=== PATIENT | male | born 1955 | race Caucasian/White ===

== ENCOUNTER 2022-10-17 10:55 | Emergency (ER) | payer OTHER, MEDICAID ==
[~2022-10-17] VITALS: Ht 177.8 cm; Wt 68.2 kg
[2022-10-17 10:55] VITALS: BP 138/75; PULSE 94; RESP 18; TEMP 98.6; O2SAT 95
[2022-10-17] MEDS ORDERED: LEVO500T91 PO (12:57)
== END 2022-10-17 12:54 | disposition home or self-care (01) ==
LOC: ER 10:55
DX: S91.001D Unspecified open wound, right ankle, subsequent encounter (principal); Z48.00 Encounter for change or removal of nonsurgical wound dressing; Z79.899 Other long term (current) drug therapy; X58.XXXD Exposure to other specified factors, subsequent encounter

== ENCOUNTER 2024-12-08 22:38 | Inpatient (IN) | payer OTHER, MEDICAID ==
[~2024-12-08] VITALS: Ht 165.1 cm; Wt 61.3 kg
[~2024-12-08 22:38] MED LIST: LEVO500T91 PO
[2024-12-09] VITALS (8 sets, daily range): BP systolic 104–134; BP diastolic 64–90; PULSE 110–116; RESP 16–25; TEMP 98.6; O2SAT 98–100
--- NOTE | 2024-12-09 17:39 | DVHHP2 ---
History of Present Illness Reason for Visit: Septic with acute hypoxic respiratory failure History of Present Illness Gomez Feliciano is a 69-year-old male with past medical history of COPD, chronic bed-bound, and CHF who is a transfer from [facility] in [place] arrived to the ED and was intubated in the ED for acute respiratory distress versus acute hypoxic respiratory failure 1 week ago. Per report from provider patient initially refused to go to the hospital however an APS report was filed for self neglect and eventually ended up in the ED and [facility]. Per report from provider patient had MRSA in the sputum is currently on vancomycin plus cefepime. Per reports patient was reintubated for acute respiratory distress. Still pending transfer from [facility]. Cardiovascular: CHF Pulmonary: COPD Past Medical History Chronic bed-bound Assessment/Plan Assessment/Plan Assessment Sepsis Acute hypoxic respiratory failure Acute respiratory distress Acute on chronic CHF versus COPD exacerbation Chronic bed-bound Plan Admit to ICU IV antibiotics-vancomycin + cefepime ABG Intubated on vent Antiemetics Pain management CBC BNP Chest x-ray NPO RN to recon Home medications DVT prophylaxis-SCDs PUD prophylaxis-PPIs Discussed plan of care with team Pulmonary consult Per reports patient is a DNR Plan discussed with: Other Date of Service: Dec 09, 2024 Billing Provider: ESTEFANY MARINO Common Visit Codes: [id number] INP/OBS CARE (HIGH) ESTEFANY MARINO Dec 09, 2024 17:39
[2024-12-09] MEDS ORDERED: ONDANSETRON HCL 4 MG/2 ML VIAL IV PRN (17:45)
[2024-12-09] MEDS ORDERED: NITROGLYCERIN 0.4 MG SL TAB SL PRN (17:45)
[2024-12-09] MEDS ORDERED: VANCOMYCIN PER PHARMACY 0 MG IV SCH (17:45)
[2024-12-09] MEDS ORDERED: ACETAMINOPHEN 325 MG TAB PO PRN (17:45)
[2024-12-09 23:06] LABS: Hematocrit 35.5 % (41.0-53.0); Hemoglobin 11.4 g/dL (13.5-17.5); Mean Corpuscular Hemoglobin 27.7 pg (28.0-32.0); Mean Corpuscular Volume 86.2 fL (80.0-100.0); Nucleated Red Blood Cells % 0.1 %
[2024-12-09 23:17] LABS: Potassium 3.9 mmol/L (3.5-5.1); Sodium 142 mmol/L (136-145)
[2024-12-09 23:19] LABS: Anion Gap 7 (5-15); Carbon Dioxide 28 mmol/L (20-31)
[2024-12-09 23:23] LABS: Calcium 8.0 mg/dL (8.7-10.4); Chloride 107 mmol/L (98-107)
[2024-12-09 23:24] LABS: BUN/Creatinine Ratio 45.3 (10.0-20.0)
[2024-12-09 23:25] LABS: Blood Urea Nitrogen 29 mg/dL (9-23); Glucose 145 mg/dL (74-106)
[2024-12-09 23:40] LABS: Base Excess 2.8 mmol/L (-2.0-3.0)
[2024-12-10] VITALS (113 sets, daily range): BP systolic 62–138; BP diastolic 39–90; PULSE 69–125; RESP 9–21; TEMP 97.6–98.7; O2SAT 89–100
[2024-12-10] MEDS: PROPOFOL 100 ML IV SCH (00:30)
[2024-12-10] MEDS: CEFEPIME 1GM/50ML 50 ML IV SCH (00:30)
[2024-12-10] MEDS: fentaNYL Drip 2500mCg/250mlNS 250 ML IV SCH (00:30)
[2024-12-10 04:00] LABS: Hematocrit 32.3 % (41.0-53.0); Hemoglobin 10.5 g/dL (13.5-17.5); Mean Corpuscular Hemoglobin 27.6 pg (28.0-32.0); Mean Corpuscular Volume 85.3 fL (80.0-100.0); Nucleated Red Blood Cells % 0.0 %
[2024-12-10 04:19] LABS: Alanine Aminotransferase 35 U/L (7-40); Alkaline Phosphatase 88 U/L (46-116); Anion Gap 8 (5-15); BUN/Creatinine Ratio 60.3 (10.0-20.0); Carbon Dioxide 30 mmol/L (20-31); Chloride 107 mmol/L (98-107); Sodium 145 mmol/L (136-145)
[2024-12-10 04:20] LABS: Bilirubin, Total 0.3 mg/dL (0.2-1.0)
[2024-12-10 04:31] LABS: Albumin 2.5 g/dL (3.2-4.8); Blood Urea Nitrogen 35 mg/dL (9-23); Calcium 7.8 mg/dL (8.7-10.4); Glucose 110 mg/dL (74-106); Potassium 3.5 mmol/L (3.5-5.1); Total Protein 4.4 g/dL (5.7-8.2)
--- NOTE | 2024-12-10 06:41 | DVH ---
CHEST RADIOGRAPH Indication: int on vent Technique: Single frontal view of the chest was obtained COMPARISON: None FINDINGS: Lines and Tubes: Endotracheal tube, enteric catheter and right central venous catheter in satisfactor y position Lungs: Congestion Pleura: Small right pleural effusion Cardiomediastinal contours: Cardiomegaly Bones: Unremarkable IMPRESSION: Lines and tubes in satisfactory position. Congestion.
[2024-12-10 09:02] LABS: Base Excess 2.6 mmol/L (-2.0-3.0)
[2024-12-10] MEDS ORDERED: NOREPINEPHRINE 8 MG/250ML KIT 250 ML IV SCH (10:15)
[2024-12-10] MEDS: NOREPINEPHRINE 8 MG/250ML KIT 250 ML IV SCH (13:30)
--- NOTE | 2024-12-10 16:04 | DVHPN2 ---
Subjective Intubated and sedated FiO2 30% 69-year-old male with a history of heart failure, COPD was transferred from [facility] after he was admitted there for acute respiratory failure and was found to have MRSA pneumonia with septic shock, he was intubated there and then extubated however he had to be reintubated emergently. He has been treated with IV antibiotics and vasopressors, at the time of transfer here he was off the vasopressors Today is blood pressure is borderline and he needed to be on Levophed again The plan of care is for him to be DNR, the wants other treatments to be provided however including antibiotics and vasopressors There is an APS case since the was not able to provide care for him Changes from previous H/P or p: Changes Objective Vitals Vital Signs Date Time Temp Pulse Resp B/P (MAP) Pulse Ox O2 Delivery O2 Flow Rate FiO2 12/10/24 15:00 111/73 12/10/24 13:23 85 12 100 30 12/10/24 06:00 Mechanical Ventilator+ 12/10/24 04:00 98.7 98.7 Intake/Output Intake and Output 12/10/24 07:00 Intake Total 205.22 ml Output Total 400 ml Balance -194.78 ml Intake IV Total 205.22 ml Output Urine Total 400 ml # Bowel Movements 1 General Appearance: Alert Cardiovascular: Regular rate, Normal S1 Abdomen: Normal bowel sounds, Soft, No tenderness Extremities: No edema Medications Current Medications Medications Dose Ordered Sig/Cordelia Route Start Time Stop Time Status Last Admin Dose Admin Ondansetron HCl 4 mg Q4HP PRN IV 12/09/24 17:45 Acetaminophen 650 mg Q6HP PRN PO 12/09/24 17:45 Nitroglycerin 0.4 mg Q5MINP PRN SL 12/09/24 17:45 Morphine Sulfate 2 mg Q30M PRN IV 12/09/24 17:45 Vancomycin HCl 0 ml @ 0 mls/hr UD IV 12/09/24 17:45 Cefepime HCl 50 ml @ 12.5 mls/hr Q8H IV 12/09/24 00:30 12/10/24 09:06 12.5 MLS/HR Propofol 100 ml @ 1.86 mls/hr Q24H IV 12/10/24 00:30 12/10/24 12:48 5.58 MLS/HR Fentanyl Citrate 250 ml @ 2.5 mls/hr Q24H IV 12/10/24 00:30 Norepinephrine Bitartrate 250 ml @ 3.75 mls/hr Q24H IV 12/10/24 13:30 Vancomycin HCl 100 ml @ 100 mls/hr Q12H IV 12/11/24 06:00 Laboratory Results Laboratory Tests 12/10/24 03:20 Chemistry Test 12/09/24 22:50 12/10/24 03:20 Calcium Level 8.0 mg/dL (8.7-10.4) L 7.8 mg/dL (8.7-10.4) L Albumin 2.5 g/dL (3.2-4.8) L Total Protein 4.4 g/dL (5.7-8.2) L LFT Test 12/10/24 03:20 Alanine Aminotransferase (ALT) 35 U/L (7-40) Alkaline Phosphatase 88 U/L (46-116) Aspartate Amino Transferase (AST) 39 U/L (13-40) Total Bilirubin 0.3 mg/dL (0.2-1.0) Blood Gas Results Test 12/09/24 23:33 12/10/24 06:25 Arterial Blood pH 7.422 (7.350-7.450) 7.399 (7.350-7.450) FiO2 % 30.0 30.0 Microbiology Microbiology Date/Time Source Procedure Growth Status 12/09/24 23:30 Nose MRSA Screen - Final Methicillin Resistant S.aureus Complete Assessment/Plan Assessment/Plan Acute hypoxic respiratory failure MRSA pneumonia Sepsis COPD Acute on chronic heart failure DNR Plan IV antibiotics Cefepime Vancomycin Vasopressors norepinephrine as needed Sedation as needed Discussed with the over the phone DNR Okay for vasopressors Pulmonary consult Plan discussed with: Spouse, Other My Orders Orders - LUKE ADAMSON MD Procedure Category Date Status Time Norepinephrine 8 PHA 12/10/24 In Process Mg/250ml Kit 13:30 Communication Order ORDERS 12/10/24 Transmitted 11:50 Date of Service: Dec 10, 2024 Billing Provider: LUKE ADAMSON MD Common Visit Codes: [id number] CARE 30-74 MIN LUKE ADAMSON MD Dec 10, 2024 16:04
[2024-12-10] MEDS: VANCOMYCIN 750MG KIT 100 ML IV ONE (19:43)
--- NOTE | 2024-12-10 20:53 | DVHINCON2 ---
Date Seen: Dec 10, [address] Delgado Reason for Consultation Mechanical ventilator management History of Present Illness A 69-year-old male with past medical history of COPD, hypertension and CHF, chronic bed-bound status, who is a transfer from [facility] where he arrived to the ED and was intubated for acute respiratory distress versus acute hypoxic respiratory failure 1 week ago. Per records from [facility], patient was admitted for acute hypoxic and hypercapnic respiratory failure due to COPD exacerbation. He is very cachectic, ill-appearing, bedbound, and has multiple skin sores. APS report was filed regarding his for neglect, as she is unable to care for him. He is currently a DNR. Patient was extubated and emergently reintubated due to respiratory failure and to remain DNI moving forward. He has acute on chronic systolic heart failure with EF estimated at 25%. Patient also has sepsis with MRSA in the sputum and bacteremia. Palliative Care has been following for goals of care. Pulmonary consultation is requested for evaluation and management of acute hypoxic respiratory failure requiring mechanical ventilator. Review of Systems: Unable to obtain d/t intubated status Past Medical History: COPD, hypertension and CHF, chronic bed-bound status Past Surgical History: None reported Medications: Reviewed. Allergies: No known drug allergies. Family History: No family history of premature CAD. No family history of lung disorders. Social History: Nonsmoker. No alcohol or illicit drug use. Allergies: Coded Allergies: NO KNOWN ALLERGIES (Unverified , 12/09/24) Home Meds Active Scripts Levofloxacin Hemihydrate (LEVAQUIN 500 MG) 500 Mg Tab, 1 TAB PO DAILY, #10 TAB Prov:RUSTY BENAVIDES 10/17/22 Current Medications Current Medications Medications (Trade) Dose Ordered Sig/Cordelia Route PRN Reason Start Time Stop Time Status Last Admin Propofol 100 ml @ 1.86 mls/hr Q24H IV 12/10/24 00:30 12/10/24 19:46 Fentanyl Citrate 250 ml @ 2.5 mls/hr Q24H IV 12/10/24 00:30 Norepinephrine Bitartrate 250 ml @ 3.75 mls/hr Q24H IV 12/10/24 10:15 12/10/24 13:29 DC Norepinephrine Bitartrate 250 ml @ 3.75 mls/hr Q24H IV 12/10/24 13:30 Vancomycin HCl 100 ml @ 100 mls/hr Q12H IV 12/11/24 06:00 Vital Signs Vital Signs Date Time Temp Pulse Resp B/P (MAP) Pulse Ox O2 Delivery O2 Flow Rate FiO2 12/10/24 20:24 71 11 115/72 (86) 100 30 12/10/24 17:35 Mechanical Ventilator+ 12/10/24 15:45 97.7 97.7 Physical Exam Gen.: Patient lying in bed in medical ICU. Sedated, intubated on mechanical ventilator. Head: Normocephalic, atraumatic. Eyes: PERRLA. Ears: Normal external anatomy. Throat: Endotracheal tube and orogastric tube in place. Neck: Supple, trachea midline. Chest: Transmitted breath sounds bilaterally. Decreased air entry bilaterally. No wheezing. Bibasilar crackles. Cardiovascular: Positive S1, positive S2. Regular rate and rhythm. Abdomen: Positive bowel sounds in all 4 quadrants. Soft, nontender, nondistended. : Saldaña in place. Normal external genitalia. Rectal: Deferred. Skin: Warm, dry. Intact. Extremities: 2+ radial pulses bilaterally. No lower extremity edema. Neuro: Sedated. Labs/Diagnostic Data Labs Test 12/10/24 06:25 12/10/24 03:20 Range/Units Blood Gas Specimen Type Arterial Blood Gas Sample Site Left radial Blood Gas Patient Temperature 37.0 Arterial Blood Date Drawn [id number] Arterial Blood pH 7.399 7.350-7.450 Arterial Blood Partial Pressure CO2 46.2 35.0-48.0 mmHg Arterial Blood Partial Pressure O2 86.0 83.0-108.0 mmHg Arterial Blood HCO3 27.9 21.0-28.0 mmol/L Arterial Blood Oxygen Saturation 96.3 94.0-98.0 % Arterial Blood Base Excess 2.6 -2.0-3.0 mmol/L Arterial Blood Oxyhemoglobin 95.7 94.0-98.0 % Arterial Blood Carboxyhemoglobin 0.5 0.5-1.5 % Arterial Blood Methemoglobin 0.1 0.0-1.5 % Jluis Test Modified Blood Gas Total Hemoglobin 11.60 L 13.5-17.5 g/dL Blood Gas Set Respiration Rate 10.0 Blood Gas Modality Vent - ac FiO2 % 30.0 Blood Gas Tidal Volume 450.0 Blood Gas PEEP or CPAP 5.0 White Blood Count 6.5 4.4-10.8 10^3/uL Red Blood Count 3.79 L 4.5-5.90 10^6/uL Hemoglobin 10.5 L 13.5-17.5 g/dL Hematocrit 32.3 L 41.0-53.0 % Mean Corpuscular Volume 85.3 80.0-100.0 fL Mean Corpuscular Hemoglobin 27.6 L 28.0-32.0 pg Mean Corpuscular Hemoglobin Concent 32.4 32.0-36.0 g/dL Red Cell Distribution Width 17.3 H 11.8-14.3 % Platelet Count 167 140-450 10^3/uL Mean Platelet Volume 9.3 6.9-10.8 fL Neutrophils (%) (Auto) 81.4 H 37.0-80.0 % Lymphocytes (%) (Auto) 10.3 10.0-50.0 % Monocytes (%) (Auto) 6.9 0.0-12.0 % Eosinophils (%) (Auto) 1.2 0.0-7.0 % Basophils (%) (Auto) 0.2 0.0-2.0 % Neutrophils # (Auto) 5.3 1.6-8.6 10 ^3/uL Lymphocytes # (Auto) 0.7 0.4-5.4 10 ^3/uL Monocytes # (Auto) 0.4 0-1.3 10 ^3/uL Eosinophils # (Auto) 0.1 0-0.8 10 ^3/uL Basophils # (Auto) 0 0-0.2 10 ^3/uL Nucleated Red Blood Cells 0.0 % Sodium Level 145 136-145 mmol/L Potassium Level 3.5 3.5-5.1 mmol/L Chloride Level 107 98-107 mmol/L Carbon Dioxide Level 30 20-31 mmol/L Anion Gap 8 5-15 Blood Urea Nitrogen 35 H 9-23 mg/dL Creatinine 0.58 L 0.700-1.30 mg/dL Glomerular Filtration Rate Calc 107 >90 mL/min BUN/Creatinine Ratio 60.3 H 10.0-20.0 Serum Glucose 110 H 74-106 mg/dL Calcium Level 7.8 L 8.7-10.4 mg/dL Total Bilirubin 0.3 0.2-1.0 mg/dL Aspartate Amino Transferase (AST) 39 13-40 U/L Alanine Aminotransferase (ALT) 35 7-40 U/L Alkaline Phosphatase 88 46-116 U/L Total Protein 4.4 L 5.7-8.2 g/dL Albumin 2.5 L 3.2-4.8 g/dL Random Vancomycin Level 18.9 H 5-10 ug/mL Microbiology Date/Time Source Procedure Growth Status 12/09/24 23:30 Nose MRSA Screen - Final Methicillin Resistant S.aureus Complete Assessment Impression: Acute hypoxic respiratory failure On mechanical ventilator Sepsis Acute on chronic CHF Acute Exacerbation COPD Chronically bed bound Pleural effusion Atelectasis Pulmonary edema Plan: s/p intubation on mechanical ventilator CXR image and report reviewed. Devices in place. Pulmonary vascular congestion. Small right pleural effusion. Atelectasis. ABG reviewed. Compensated. Vent: RR 10, Vent 450, Peep 5, Fio2 30%. Titrate FIO2 to keep O2 saturation above 92%. VAP bundle Daily ABG and CXR while intubated. Continue antibiotics. F/u cultures. Monitor renal function due to Acute kidney injury. Monitor electrolytes. Supplement as necessary. Monitor hgb, 10.5 g/dL. Nutritional support. Accu-Cheks, ISS. GI/DVT prophylaxis. SCDs, PPI Condition: Critical Prognosis: Poor given multiple comorbidities. Rest of plan per hospitalist and other consultants. A total of 35 minutes of critical care time was spent reviewing the patient record, examining the patient, making a diagnostic and therapeutic plan, discussing this plan with the medical personnel, following up on diagnostic studies and following the patient for clinical stability excluding any and all procedures. At least 50% of this time was spent in direct, [id number] contact. Thank you for allowing me to participate in this patient's care. Further recommendations will depend on patient's clinical course. Please do not hesitate to contact me if you have any questions or concerns. This medical document was created using an electronic medical record system with [employer] system. Although this document has been carefully reviewed, there may still be some phonetic and typographical errors. These areas are purely typographical due to imperfections of the software programs, and do not reflect any compromise in the patient's medical care. Plan discussed with: Other (JAMES Chan) Date of Service: Dec 10, 2024 Billing Provider: SINTIA GODINEZ MD Common Visit Codes: [id number] INP/OBS CARE (HIGH), [id number] CARE 30- 74 MIN SINTIA GODINEZ MD Dec 10, 2024 20:53
[2024-12-10] MEDS: Vital High Protein 1liter Bottle GT SCH (23:35)
[2024-12-11] VITALS (109 sets, daily range): BP systolic 77–142; BP diastolic 44–94; PULSE 68–128; RESP 9–24; TEMP 97.8–99.3; O2SAT 98–100
[2024-12-11 03:01] LABS: Hematocrit 34.8 % (41.0-53.0); Hemoglobin 11.4 g/dL (13.5-17.5); Mean Corpuscular Hemoglobin 27.8 pg (28.0-32.0); Mean Corpuscular Volume 85.2 fL (80.0-100.0); Nucleated Red Blood Cells % 0.1 %
[2024-12-11 03:10] LABS: Anion Gap 7 (5-15); Carbon Dioxide 30 mmol/L (20-31); Sodium 145 mmol/L (136-145)
[2024-12-11 03:15] LABS: Glucose 81 mg/dL (74-106)
[2024-12-11 03:16] LABS: BUN/Creatinine Ratio 54.4 (10.0-20.0); Magnesium 1.7 mg/dL (1.6-2.6)
[2024-12-11 03:34] LABS: Blood Urea Nitrogen 31 mg/dL (9-23); Calcium 8.1 mg/dL (8.7-10.4); Chloride 108 mmol/L (98-107); Potassium 3.4 mmol/L (3.5-5.1)
[2024-12-11] MEDS: POTASSIUM CHL 20MEQ/100ML 100 ML IV ONE (04:27)
[2024-12-11] MEDS ORDERED: VANCOMYCIN 750MG KIT 100 ML IV SCH (06:00)
--- NOTE | 2024-12-11 06:19 | DVH ---
CHEST RADIOGRAPH Indication: INTUBATED Technique: Single frontal view of the chest was obtained Comparison: XY CHEST XRAY 1 VIEW on DOS: 12/10/24 IMPRESSION: Patient is rotated to the right. Heart appears stable in size. Moderate right pleural effusion with bibasilar airspace opacities. No discrete pneumothorax. Enteric tube, endotracheal tube, and right I J catheter appear stable in position.
[2024-12-11 06:49] LABS: Base Excess -1.6 mmol/L (-2.0-3.0)
--- NOTE | 2024-12-11 08:32 | MEDREC ---
FORM[facility], LATER [facility] Intervention Section I FOR[facility], [facility] Intervention: Review courses of therapy (MRSA SCREEN POSITIVE CONSIDER ADDING MUPIROCIN 2% OINTMENT 1 APPLICATION IN EACH NOSTRIL BID FOR 5 DAYS - PRELIMINARY SPUTUM CULTURE POSITIVE FOR YEAST - PLEASE CONSIDER ADDING ANTIFUNGAL IF CLINICALLY RELEVANT ) SADIE JACOBO PHARMACIST Dec 11, 2024 08:32
[2024-12-11] MEDS: VANCOMYCIN 750MG KIT 100 ML IV SCH (08:48)
[2024-12-11] MEDS: MAGNESIUM SULFATE 1GM/100ML 100 ML IV SCH (10:05)
--- NOTE | 2024-12-11 12:29 | DVHPN2 ---
Subjective Intubated and sedated FiO2 30% Changes from previous H/P or p: Changes Objective Vitals Vital Signs Date Time Temp Pulse Resp B/P (MAP) Pulse Ox O2 Delivery O2 Flow Rate FiO2 12/11/24 11:39 30 12/11/24 11:39 85 12/11/24 11:39 12 100 Mechanical Ventilator+ 12/11/24 11:30 86/53 (64) 12/11/24 08:00 99.3 99.3 Intake/Output Intake and Output 12/11/24 07:00 Intake Total 771.435 ml Output Total 1025 ml Balance -253.565 ml Intake Oral 140 ml IV Total 569.435 ml Tube Feeding 62 ml Output Urine Total 1025 ml # Bowel Movements 1 General Appearance: Alert Cardiovascular: Regular rate, Normal S1 Abdomen: Normal bowel sounds, Soft, No tenderness Extremities: No edema Medications Current Medications Medications Dose Ordered Sig/Cordelia Route Start Time Stop Time Status Last Admin Dose Admin Ondansetron HCl 4 mg Q4HP PRN IV 12/09/24 17:45 Acetaminophen 650 mg Q6HP PRN PO 12/09/24 17:45 Nitroglycerin 0.4 mg Q5MINP PRN SL 12/09/24 17:45 Morphine Sulfate 2 mg Q30M PRN IV 12/09/24 17:45 Vancomycin HCl 0 ml @ 0 mls/hr UD IV 12/09/24 17:45 Cefepime HCl 50 ml @ 12.5 mls/hr Q8H IV 12/09/24 00:30 12/11/24 07:54 12.5 MLS/HR Propofol 100 ml @ 1.86 mls/hr Q24H IV 12/10/24 00:30 12/11/24 05:51 5.58 MLS/HR Fentanyl Citrate 250 ml @ 2.5 mls/hr Q24H IV 12/10/24 00:30 12/10/24 22:07 10 MLS/HR Norepinephrine Bitartrate 250 ml @ 3.75 mls/hr Q24H IV 12/10/24 13:30 Vancomycin HCl 100 ml @ 100 mls/hr Q12H IV 12/11/24 10:00 12/11/24 08:48 100 MLS/HR Enteral Nutritional Formula 1,000 ml 20ML/HR GT 12/10/24 23:15 12/10/24 23:35 1,000 ML Laboratory Results Laboratory Tests 12/11/24 02:36 Chemistry Test 12/11/24 02:36 Calcium Level 8.1 mg/dL (8.7-10.4) L Magnesium Level 1.7 mg/dL (1.6-2.6) Blood Gas Results Test 12/11/24 06:43 Arterial Blood pH 7.325 (7.350-7.450) FiO2 % 30.0 Microbiology Microbiology Date/Time Source Procedure Growth Status 12/09/24 23:30 Nose MRSA Screen - Final Methicillin Resistant S.aureus Complete 12/09/24 23:30 Sputum Gram Stain Pending Resulted 12/09/24 23:30 Sputum Respiratory Culture - Preliminary Resulted Assessment/Plan Assessment/Plan Acute hypoxic respiratory failure MRSA pneumonia Sepsis COPD Acute on chronic systolic heart failure EF 25% DNR MRSA positive Plan IV antibiotics Cefepime Vancomycin Vasopressors norepinephrine as needed Sedation as needed Discussed with the over the phone DNR Okay for vasopressors Pulmonary consult 12/11/2024: IV antibiotics cefepime and vancomycin Vasopressors norepinephrine as needed DNR Pulmonary consult Add Bactroban ointment to the nares Plan discussed with: Spouse, Other My Orders Orders - LUKE ADAMSON MD Procedure Category Date Status Time Norepinephrine 8 PHA 12/10/24 In Process Mg/250ml Kit 13:30 Communication Order ORDERS 12/10/24 Transmitted 11:50 Apply Z-Guard HERNANDEZ 12/10/24 In Process 12:45 Cleanse Wound With HERNANDEZ 12/10/24 In Process Wound Clean 12:45 * Dietary Consult CONS 12/10/24 Transmitted 18:10 Date of Service: Dec 11, 2024 Billing Provider: LUKE ADAMSON MD Common Visit Codes: [id number] INP/OBS CARE(HIGH) LUKE ADAMSON MD Dec 11, 2024 12:29
[2024-12-11] MEDS: MUPIROCIN 2% OINT 15gm or 22gm FOR MRSA NARES EACHNOSTRI SCH (21:05)
[2024-12-12] VITALS (104 sets, daily range): BP systolic 72–137; BP diastolic 46–79; PULSE 57–144; RESP 9–21; TEMP 96.5–98.2; O2SAT 96–100
[2024-12-12 04:42] LABS: Hematocrit 34.8 % (41.0-53.0); Hemoglobin 11.2 g/dL (13.5-17.5); Mean Corpuscular Hemoglobin 28.0 pg (28.0-32.0); Mean Corpuscular Volume 87.1 fL (80.0-100.0); Nucleated Red Blood Cells % 0.1 %
[2024-12-12 04:51] LABS: Alanine Aminotransferase 30 U/L (7-40); Alkaline Phosphatase 106 U/L (46-116); Anion Gap 9 (5-15); BUN/Creatinine Ratio 34.5 (10.0-20.0); Bilirubin, Total 0.3 mg/dL (0.2-1.0); Blood Urea Nitrogen 20 mg/dL (9-23); Carbon Dioxide 28 mmol/L (20-31); Chloride 106 mmol/L (98-107); Glucose 83 mg/dL (74-106); Magnesium 2.0 mg/dL (1.6-2.6); Potassium 3.7 mmol/L (3.5-5.1); Sodium 143 mmol/L (136-145)
[2024-12-12 04:56] LABS: Albumin 2.7 g/dL (3.2-4.8); Calcium 8.2 mg/dL (8.7-10.4); Total Protein 4.8 g/dL (5.7-8.2)
--- NOTE | 2024-12-12 05:31 | DVH ---
CHEST RADIOGRAPH Indication: intubated Technique: Single frontal view of the chest was obtained COMPARISON: XY CHEST XRAY 1 VIEW on DOS: 12/11/24, XY CHEST XRAY 1 VIEW on DOS: 12/10/24 FINDINGS: Lines and Tubes: Endotracheal tube, enteric catheter, and right central venous catheter in satisfacto ry position. Lungs: Unchanged pulmonary edema. Pleura: No effusion.No pneumothorax. Cardiomediastinal contours: Unremarkable. Bones: Unremarkable. IMPRESSION: Lines and tubes in satisfactory position. No significant interval change.
--- NOTE | 2024-12-12 08:50 | DVHPN2 ---
Subjective DOS: 12/11/2024 Patient seen and examined at bedside. Sedated, intubated on mechanical ventilator. Overnight events reviewed. Changes from previous H/P or p: No Changes Objective Vitals Vital Signs Date Time Temp Pulse Resp B/P (MAP) Pulse Ox O2 Delivery O2 Flow Rate FiO2 12/12/24 07:13 112 11 103/69 (80) 97 30 12/12/24 06:00 Mechanical Ventilator+ 12/12/24 04:00 98.1 98.1 Intake/Output Intake and Output 12/12/24 07:00 Intake Total 1502.260 ml Output Total 1300 ml Balance 202.260 ml Intake Oral 100 ml IV Total 912.260 ml Tube Feeding 490 ml Output Urine Total 1300 ml General Appearance: Alert Lungs: Other (On vent) Cardiovascular: Regular rate, Normal S1 Abdomen: Normal bowel sounds, Soft, No tenderness Extremities: No edema Medications Current Medications Medications Dose Ordered Sig/Cordelia Route Start Time Stop Time Status Last Admin Dose Admin Ondansetron HCl 4 mg Q4HP PRN IV 12/09/24 17:45 Acetaminophen 650 mg Q6HP PRN PO 12/09/24 17:45 Nitroglycerin 0.4 mg Q5MINP PRN SL 12/09/24 17:45 Morphine Sulfate 2 mg Q30M PRN IV 12/09/24 17:45 Vancomycin HCl 0 ml @ 0 mls/hr UD IV 12/09/24 17:45 Cefepime HCl 50 ml @ 12.5 mls/hr Q8H IV 12/09/24 00:30 12/12/24 01:28 12.5 MLS/HR Propofol 100 ml @ 1.86 mls/hr Q24H IV 12/10/24 00:30 12/12/24 06:15 9.3 MLS/HR Fentanyl Citrate 250 ml @ 2.5 mls/hr Q24H IV 12/10/24 00:30 12/11/24 21:57 10 MLS/HR Norepinephrine Bitartrate 250 ml @ 3.75 mls/hr Q24H IV 12/10/24 13:30 Vancomycin HCl 100 ml @ 100 mls/hr Q12H IV 12/11/24 10:00 12/11/24 20:55 100 MLS/HR Enteral Nutritional Formula 1,000 ml 20ML/HR GT 12/10/24 23:15 12/10/24 23:35 1,000 ML Mupirocin 1 applic BID EACHNOSTRI 12/11/24 22:00 12/16/24 21:59 12/11/24 21:05 1 APPLIC Laboratory Results Laboratory Tests 12/12/24 03:45 Chemistry Test 12/12/24 03:45 Albumin 2.7 g/dL (3.2-4.8) L Calcium Level 8.2 mg/dL (8.7-10.4) L Magnesium Level 2.0 mg/dL (1.6-2.6) Total Protein 4.8 g/dL (5.7-8.2) L LFT Test 12/12/24 03:45 Alanine Aminotransferase (ALT) 30 U/L (7-40) Alkaline Phosphatase 106 U/L (46-116) Aspartate Amino Transferase (AST) 33 U/L (13-40) Total Bilirubin 0.3 mg/dL (0.2-1.0) Microbiology Microbiology Date/Time Source Procedure Growth Status 12/09/24 23:30 Nose MRSA Screen - Final Methicillin Resistant S.aureus Complete 12/09/24 23:30 Sputum Gram Stain - Final Resulted 12/09/24 23:30 Sputum Respiratory Culture - Preliminary Resulted Assessment/Plan Assessment/Plan Impression: Acute hypoxic respiratory failure On mechanical ventilator Sepsis Acute on chronic CHF Acute Exacerbation COPD Chronically bed bound Pleural effusion Atelectasis Pulmonary edema Events: Remains on vent support AC mode: RR 10, VT 450, PEEP 5, Fio2 30%. Continue antibiotics Continue bronchodilators/Mucomyst Chest physiotherapy Pulmonary toileting Maintain euvolemia Monitor renal function ABG notable for acidemia CXR reviewed, devices in place. Moderate right pleural effusion with bibasilar airspace opacities. No discrete pneumothorax. Labs and imaging reviewed. Rest of plan as noted below. Plan: s/p intubation on mechanical ventilator Vent: RR 10, Vent 450, Peep 5, Fio2 30%. Titrate FIO2 to keep O2 saturation above 92%. VAP bundle Daily ABG and CXR while intubated. Continue antibiotics. F/u cultures. Monitor renal function due to Acute kidney injury. Monitor electrolytes. Supplement as necessary. Monitor hemoglobin Transfuse if less than 7.0 g/dL. Nutritional support. Accu-Cheks, ISS. Wound care GI/DVT prophylaxis. SCDs, PPI Condition: Critical Prognosis: Poor given multiple comorbidities. Rest of plan per hospitalist and other consultants. A total of 35 minutes of critical care time was spent reviewing the patient record, examining the patient, making a diagnostic and therapeutic plan, discussing this plan with the medical personnel, following up on diagnostic studies and following the patient for clinical stability excluding any and all procedures. At least 50% of this time was spent in direct, [id number] contact. Thank you for allowing me to participate in this patient's care. Further recommendations will depend on patient's clinical course. Please do not hesitate to contact me if you have any questions or concerns. This medical document was created using an electronic medical record system with [employer] dictation system. Although this document has been carefully reviewed, there may still be some phonetic and typographical errors. These areas are purely typographical due to imperfections of the software programs, and do not reflect any compromise in the patient's medical care. Plan discussed with: Other My Orders Orders - SINTIA GODINEZ MD Procedure Category Date Status Time Abg W/ Co-Ox RT 12/12/24 Logged 06:00 Date of Service: Dec 11, 2024 Billing Provider: SINTIA GODINEZ MD Common Visit Codes: [id number] INP/OBS CARE(HIGH), [id number] CARE 30-74 MIN SINTIA GODINEZ MD Dec 12, 2024 08:50
[2024-12-12 12:11] LABS: Base Excess 1.0 mmol/L (-2.0-3.0)
--- NOTE | 2024-12-12 12:26 | DVH ---
INDICATION: ngt placement TECHNIQUE: Single frontal view of the chest was obtained COMPARISON: XY CHEST PORTABLE on DOS: 12/12/24, XY CHEST XRAY 1 VIEW on DOS: 12/11/24, XY CHEST XRAY 1 VIEW on DOS: 12/10/24, XY CHEST PORTABLE on DOS: 12/12/24 FINDINGS: Lines and Tubes: Endotracheal tube, enteric catheter, and right central venous catheter in satisfacto ry position. Lungs: Unchanged pulmonary edema. Pleura: No effusion.No pneumothorax. Cardiomediastinal contours: Unremarkable. Bones: Unremarkable. IMPRESSION: Lines and tubes in satisfactory position. No significant interval change.
--- NOTE | 2024-12-12 14:21 | DVHPN2 ---
Subjective Intubated and sedated On fentanyl and propofol drips On Levophed drip Changes from previous H/P or p: Changes Objective Vitals Vital Signs Date Time Temp Pulse Resp B/P (MAP) Pulse Ox O2 Delivery O2 Flow Rate FiO2 12/12/24 13:30 68 10 107/62 (77) 100 12/12/24 12:33 30 12/12/24 12:00 Mechanical Ventilator+ 12/12/24 12:00 96.7 96.7 Intake/Output Intake and Output 12/12/24 07:00 Intake Total 1527.810 ml Output Total 1300 ml Balance 227.810 ml Intake Oral 100 ml IV Total 937.810 ml Tube Feeding 490 ml Output Urine Total 1300 ml General Appearance: Alert Cardiovascular: Regular rate, Normal S1 Abdomen: Normal bowel sounds, Soft, No tenderness Extremities: No edema Medications Current Medications Medications Dose Ordered Sig/Cordelia Route Start Time Stop Time Status Last Admin Dose Admin Ondansetron HCl 4 mg Q4HP PRN IV 12/09/24 17:45 Acetaminophen 650 mg Q6HP PRN PO 12/09/24 17:45 Nitroglycerin 0.4 mg Q5MINP PRN SL 12/09/24 17:45 Morphine Sulfate 2 mg Q30M PRN IV 12/09/24 17:45 Vancomycin HCl 0 ml @ 0 mls/hr UD IV 12/09/24 17:45 Cefepime HCl 50 ml @ 12.5 mls/hr Q8H IV 12/09/24 00:30 12/12/24 10:00 12.5 MLS/HR Propofol 100 ml @ 1.86 mls/hr Q24H IV 12/10/24 00:30 12/12/24 06:15 9.3 MLS/HR Fentanyl Citrate 250 ml @ 2.5 mls/hr Q24H IV 12/10/24 00:30 12/11/24 21:57 10 MLS/HR Norepinephrine Bitartrate 250 ml @ 3.75 mls/hr Q24H IV 12/10/24 13:30 Vancomycin HCl 100 ml @ 100 mls/hr Q12H IV 12/11/24 10:00 12/12/24 10:56 100 MLS/HR Enteral Nutritional Formula 1,000 ml 20ML/HR GT 12/10/24 23:15 12/10/24 23:35 1,000 ML Mupirocin 1 applic BID EACHNOSTRI 12/11/24 22:00 12/16/24 21:59 12/11/24 21:05 1 APPLIC Laboratory Results Laboratory Tests 12/12/24 03:45 Chemistry Test 12/12/24 03:45 Albumin 2.7 g/dL (3.2-4.8) L Calcium Level 8.2 mg/dL (8.7-10.4) L Magnesium Level 2.0 mg/dL (1.6-2.6) Total Protein 4.8 g/dL (5.7-8.2) L LFT Test 12/12/24 03:45 Alanine Aminotransferase (ALT) 30 U/L (7-40) Alkaline Phosphatase 106 U/L (46-116) Aspartate Amino Transferase (AST) 33 U/L (13-40) Total Bilirubin 0.3 mg/dL (0.2-1.0) Blood Gas Results Test 12/12/24 09:20 Arterial Blood pH 7.338 (7.350-7.450) FiO2 % 30.0 Microbiology Microbiology Date/Time Source Procedure Growth Status 12/09/24 23:30 Nose MRSA Screen - Final Methicillin Resistant S.aureus Complete 12/09/24 23:30 Sputum Gram Stain - Final Resulted 12/09/24 23:30 Sputum Respiratory Culture - Preliminary Resulted Assessment/Plan Assessment/Plan Acute hypoxic respiratory failure MRSA pneumonia Sepsis COPD Acute on chronic systolic heart failure EF 25% DNR MRSA positive Plan IV antibiotics Cefepime Vancomycin Vasopressors norepinephrine as needed Sedation as needed Discussed with the over the phone DNR Okay for vasopressors Pulmonary consult 12/11/2024: IV antibiotics cefepime and vancomycin Vasopressors norepinephrine as needed DNR Pulmonary consult Add Bactroban ointment to the nares 12/12/2024: Continue IV antibiotics Levophed drip as needed DNR Discussed with the over the phone Discussed with Dr. Macias over the phone, plan for bronchoscopy today The plan is to take the patient off sedation and Levophed and hopefully extubate him terminally soon to go home on hospice Plan discussed with: Spouse My Orders Orders - LUKE ADAMSON MD Procedure Category Date Status Time Chest Portable XY 12/12/24 Resulted 04:00 Chest Portable XY 12/12/24 Resulted 10:30 Date of Service: Dec 12, 2024 Billing Provider: LUKE ADAMSON MD Common Visit Codes: [id number] INP/OBS CARE(HIGH) LUKE ADAMSON MD Dec 12, 2024 14:21
[2024-12-12] MEDS: NOREPINEPHRINE 8 MG/250ML KIT 250 ML IV SCH (19:00)
--- NOTE | 2024-12-12 22:40 | DVHNC2 ---
Procedure - Bronchoscopy procedure note Date: 12/12/24 Time: 1944 Indications: Right upper lobe extrinsic compression, r/o mucous plugging, Mucous plugging in bilateral lower lobes. Anesthesia: Sedated with Versed drip in ICU while intubated and on mechanical ventilator Complications: None Procedure: Risks and benefits of the procedure and sedation options and risks were discussed with the patient/patient's HCP. All questions were answered and informed consent was obtained. Patient identification and proposed procedure were verified prior to the procedure by the physician, the nurse and the Tech in the ICU. After obtaining informed consent, the bronchoscope was entered through the endotracheal tube into the tracheobronchial tree of both lungs. The procedure was accomplished without difficulty. The patient tolerated the procedure well. Findings: The trachea is of normal caliber. The deb is sharp. 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 There were copious, thick whitish secretions likely responsible for mucous plugging. These were cleared out. The tracheobronchial tree of the left lung was examined at least the first subsegmental level. Bronchial mucosa and anatomy of the left upper lobe and lingula are normal. There are no endobronchial lesions. There was diffuse, whitish, viscous secretions in the lingular bronchus and left upper lobe bronchus. Washings were collected from left upper lobe. The rest were suctioned out and cleared. The left lower lobe was examined at least the first subsegmental level. Bronchial mucosa and anatomy of the left lower lobe are normal. There were no endobronchial lesions. There was copious, viscous secretions throughout the left lower lobe. These were suctioned out and cleared. The tracheobronchial tree of the right lung was examined to at least the first subsegmental level. The bronchial mucosa and anatomy of the right lung are normal. There were viscous, copious secretions throughout. A bronchoalveolar lavage was performed in the left lower lobe. Bronchoalveolar lavage of LLL were sent for gram stain and culture and fungal culture. There was no active bleeding noted upon completion of procedure. Estimated blood loss less than 5 mL. Impression: Ruled out endobronchial lesion Left lower lobe Bronchoalveolar lavage performed Mucous plugging throughout causing atelectasis Extrinsic compression of RUL Recommendations: Follow-up left lower lobe bronchoalveolar lavage results. Procedure codes: CPT 89698, bronchoscopy, rigid or flexible with endobronchial bronchoalveolar lavage, single or multiple sites. CPT 80961 SINTIA GODINEZ MD Dec 12, 2024 22:40
--- NOTE | 2024-12-12 23:00 | DVHPN2 ---
Subjective DOS: 12/12/2024 Patient seen and examined at bedside. Sedated, intubated on mechanical ventilator. Overnight events reviewed. Changes from previous H/P or p: No Changes Objective Vitals Vital Signs Date Time Temp Pulse Resp B/P (MAP) Pulse Ox O2 Delivery O2 Flow Rate FiO2 12/12/24 22:06 86 16 98/54 (69) 96 30 12/12/24 22:00 Mechanical Ventilator+ 12/12/24 20:15 97.1 97.1 Intake/Output Intake and Output 12/12/24 07:00 Intake Total 1527.810 ml Output Total 1300 ml Balance 227.810 ml Intake Oral 100 ml IV Total 937.810 ml Tube Feeding 490 ml Output Urine Total 1300 ml General Appearance: Alert Lungs: Other (On mechanical ventilator. Transmitted breath sounds bilaterally.) Cardiovascular: Regular rate, Normal S1 Abdomen: Normal bowel sounds, Soft, No tenderness Extremities: No edema Medications Current Medications Medications Dose Ordered Sig/Cordelia Route Start Time Stop Time Status Last Admin Dose Admin Ondansetron HCl 4 mg Q4HP PRN IV 12/09/24 17:45 Acetaminophen 650 mg Q6HP PRN PO 12/09/24 17:45 Nitroglycerin 0.4 mg Q5MINP PRN SL 12/09/24 17:45 Morphine Sulfate 2 mg Q30M PRN IV 12/09/24 17:45 Vancomycin HCl 0 ml @ 0 mls/hr UD IV 12/09/24 17:45 Cefepime HCl 50 ml @ 12.5 mls/hr Q8H IV 12/09/24 00:30 12/12/24 17:18 12.5 MLS/HR Propofol 100 ml @ 1.86 mls/hr Q24H IV 12/10/24 00:30 12/12/24 15:14 11.16 MLS/HR Fentanyl Citrate 250 ml @ 2.5 mls/hr Q24H IV 12/10/24 00:30 12/12/24 16:12 12.5 MLS/HR Vancomycin HCl 100 ml @ 100 mls/hr Q12H IV 12/11/24 10:00 12/12/24 21:47 100 MLS/HR Enteral Nutritional Formula 1,000 ml 20ML/HR GT 12/10/24 23:15 12/10/24 23:35 1,000 ML Mupirocin 1 applic BID EACHNOSTRI 12/11/24 22:00 12/16/24 21:59 12/12/24 21:47 1 APPLIC Norepinephrine Bitartrate 250 ml @ 1.875 mls/ hr Q24H IV 12/12/24 19:00 Laboratory Results Laboratory Tests 12/12/24 03:45 Chemistry Test 12/12/24 03:45 Albumin 2.7 g/dL (3.2-4.8) L Calcium Level 8.2 mg/dL (8.7-10.4) L Magnesium Level 2.0 mg/dL (1.6-2.6) Total Protein 4.8 g/dL (5.7-8.2) L LFT Test 12/12/24 03:45 Alanine Aminotransferase (ALT) 30 U/L (7-40) Alkaline Phosphatase 106 U/L (46-116) Aspartate Amino Transferase (AST) 33 U/L (13-40) Total Bilirubin 0.3 mg/dL (0.2-1.0) Blood Gas Results Test 12/12/24 09:20 Arterial Blood pH 7.338 (7.350-7.450) FiO2 % 30.0 Microbiology Microbiology Date/Time Source Procedure Growth Status 12/09/24 23:30 Nose MRSA Screen - Final Methicillin Resistant S.aureus Complete 12/09/24 23:30 Sputum Gram Stain - Final Resulted 12/09/24 23:30 Sputum Respiratory Culture - Preliminary Resulted Assessment/Plan Assessment/Plan Impression: Acute hypoxic respiratory failure On mechanical ventilator Sepsis Acute on chronic CHF Acute Exacerbation COPD Chronically bed bound Pleural effusion Atelectasis Pulmonary edema Events: Remains on vent support AC mode: RR 10, VT 450, PEEP 5, Fio2 30%. On Fentanyl drip On pressors for hemodynamic support Levophed 5 mcg/min Titrate to keep MAP above 65 mmHg/SBP above 90 mmHg. Continue antibiotics Continue bronchodilators/Mucomyst Chest physiotherapy Pulmonary toileting Increased ET tube secretions - Plan for bronchoscopy to clear mucous plugs. CPAP trial with PS 8, PEEP 5. Maintain euvolemia Monitor renal function ABG notable for acidemia CXR reviewed, devices in place. Pulmonary edema, unchanged. Labs and imaging reviewed. Rest of plan as noted below. Plan: s/p intubation on mechanical ventilator Vent: RR 10, Vent 450, Peep 5, Fio2 30%. Titrate FIO2 to keep O2 saturation above 92%. VAP bundle Daily ABG and CXR while intubated. Continue antibiotics. F/u cultures. Monitor renal function due to Acute kidney injury. Monitor electrolytes. Supplement as necessary. Monitor hemoglobin Transfuse if less than 7.0 g/dL. Nutritional support. Accu-Cheks, ISS. Wound care GI/DVT prophylaxis. SCDs, PPI Condition: Critical Prognosis: Poor given multiple comorbidities. Rest of plan per hospitalist and other consultants. A total of 35 minutes of critical care time was spent reviewing the patient record, examining the patient, making a diagnostic and therapeutic plan, discussing this plan with the medical personnel, following up on diagnostic studies and following the patient for clinical stability excluding any and all procedures. At least 50% of this time was spent in direct, [id number] contact. Thank you for allowing me to participate in this patient's care. Further recommendations will depend on patient's clinical course. Please do not hesitate to contact me if you have any questions or concerns. This medical document was created using an electronic medical record system with [employer] dictation system. Although this document has been carefully reviewed, there may still be some phonetic and typographical errors. These areas are purely typographical due to imperfections of the software programs, and do not reflect any compromise in the patient's medical care. Plan discussed with: Other (JAMES Proctor) My Orders Orders - SINTIA GODINEZ MD Procedure Category Date Status Time Abg W/ Co-Ox RT 12/12/24 Logged 06:00 Respiratory Culture DILEEP 12/12/24 In Process W/ Gs 20:15 Date of Service: Dec 12, 2024 Billing Provider: SINTIA GODINEZ MD Common Visit Codes: [id number] INP/OBS CARE(HIGH), [id number] CARE 30-74 MIN SINTIA GODINEZ MD Dec 12, 2024 23:00
[2024-12-13] VITALS (109 sets, daily range): BP systolic 79–152; BP diastolic 48–101; PULSE 67–144; RESP 8–29; TEMP 98.1–99.1; O2SAT 96–100
[2024-12-13 07:28] LABS: Base Excess 3.0 mmol/L (-2.0-3.0)
[2024-12-13] MEDS: DEXMEDETOMIDINE HCL IN D5W 100 ML IV SCH (09:12)
--- NOTE | 2024-12-13 09:12 | DVHPN2 ---
Subjective Off Sedation but very agitated Heart rate 130-140 Plan for CPAP today Changes from previous H/P or p: Changes Objective Vitals Vital Signs Date Time Temp Pulse Resp B/P (MAP) Pulse Ox O2 Delivery O2 Flow Rate FiO2 12/13/24 08:37 143/93 12/13/24 07:17 75 12 100 30 12/13/24 06:00 Mechanical Ventilator+ 12/13/24 04:30 98.2 98.2 Intake/Output Intake and Output 12/13/24 07:00 Intake Total 1674.530 ml Output Total 1300 ml Balance 374.530 ml Intake Oral 100 ml IV Total 1146.530 ml Tube Feeding 428 ml Output Urine Total 1300 ml General Appearance: Alert Lungs: Other (On mechanical ventilator. Transmitted breath sounds bilaterally.) Cardiovascular: Regular rate, Normal S1 Abdomen: Normal bowel sounds, Soft, No tenderness Extremities: No edema Medications Current Medications Medications Dose Ordered Sig/Cordelia Route Start Time Stop Time Status Last Admin Dose Admin Ondansetron HCl 4 mg Q4HP PRN IV 12/09/24 17:45 Acetaminophen 650 mg Q6HP PRN PO 12/09/24 17:45 Nitroglycerin 0.4 mg Q5MINP PRN SL 12/09/24 17:45 Morphine Sulfate 2 mg Q30M PRN IV 12/09/24 17:45 Vancomycin HCl 0 ml @ 0 mls/hr UD IV 12/09/24 17:45 Cefepime HCl 50 ml @ 12.5 mls/hr Q8H IV 12/09/24 00:30 12/13/24 08:52 12.5 MLS/HR Propofol 100 ml @ 1.86 mls/hr Q24H IV 12/10/24 00:30 12/13/24 01:10 7.44 MLS/HR Fentanyl Citrate 250 ml @ 2.5 mls/hr Q24H IV 12/10/24 00:30 12/12/24 16:12 12.5 MLS/HR Vancomycin HCl 100 ml @ 100 mls/hr Q12H IV 12/11/24 10:00 12/12/24 21:47 100 MLS/HR Enteral Nutritional Formula 1,000 ml 20ML/HR GT 12/10/24 23:15 12/10/24 23:35 1,000 ML Mupirocin 1 applic BID EACHNOSTRI 12/11/24 22:00 12/16/24 21:59 12/12/24 21:47 1 APPLIC Norepinephrine Bitartrate 250 ml @ 1.875 mls/ hr Q24H IV 12/12/24 19:00 Laboratory Results Laboratory Tests 12/12/24 03:45 12/13/24 03:30 Blood Gas Results Test 12/12/24 09:20 12/13/24 07:10 Arterial Blood pH 7.338 (7.350-7.450) 7.381 (7.350-7.450) FiO2 % 30.0 30.0 Microbiology Microbiology Date/Time Source Procedure Growth Status 12/09/24 23:30 Nose MRSA Screen - Final Methicillin Resistant S.aureus Complete 12/09/24 23:30 Sputum Gram Stain - Final Resulted 12/09/24 23:30 Sputum Respiratory Culture - Preliminary Resulted Assessment/Plan Assessment/Plan Acute hypoxic respiratory failure MRSA pneumonia Sepsis COPD Acute on chronic systolic heart failure EF 25% DNR MRSA positive Plan IV antibiotics Cefepime Vancomycin Vasopressors norepinephrine as needed Sedation as needed Discussed with the over the phone DNR Okay for vasopressors Pulmonary consult 12/11/2024: IV antibiotics cefepime and vancomycin Vasopressors norepinephrine as needed DNR Pulmonary consult Add Bactroban ointment to the nares 12/12/2024: Continue IV antibiotics Levophed drip as needed DNR Discussed with the over the phone Discussed with Dr. Macias over the phone, plan for bronchoscopy today The plan is to take the patient off sedation and Levophed and hopefully extubate him terminally soon to go home on hospice 12/13/2024: Off sedation CPAP trials Precedex Resume low-dose fentanyl DNR Status post bronchoscopy yesterday and mucus plugs removal and irrigation Plan discussed with: Patient My Orders Orders - LUKE ADAMSON MD Procedure Category Date Status Time Chest Portable XY 12/12/24 Resulted 10:30 Norepinephrine 8 PHA 12/12/24 In Process Mg/250ml Kit 19:00 Dexmedetomidine Hcl PHA 12/13/24 In Process In D5w (Precedex) 08:30 Date of Service: Dec 13, 2024 Billing Provider: LUKE ADAMSON MD Common Visit Codes: [id number] INP/OBS CARE(HIGH) LUKE ADAMSON MD Dec 13, 2024 09:12
--- NOTE | 2024-12-13 21:08 | DVHPN2 ---
Date of Service: Dec 12, 2024 Billing Provider: SINTIA GODINEZ MD Common Visit Codes: [id number] CARE 30-74 MIN Procedure Codes: [id number] SINTIA GODINEZ MD Dec 13, 2024 21:08
[2024-12-14] VITALS (68 sets, daily range): BP systolic 69–139; BP diastolic 40–94; PULSE 54–128; RESP 8–36; TEMP 97.7–98.6; O2SAT 72–100
[2024-12-14 04:03] LABS: Hematocrit 35.2 % (41.0-53.0); Hemoglobin 11.6 g/dL (13.5-17.5); Mean Corpuscular Hemoglobin 27.7 pg (28.0-32.0); Mean Corpuscular Volume 84.2 fL (80.0-100.0); Nucleated Red Blood Cells % 0.0 %
[2024-12-14 04:20] LABS: Alanine Aminotransferase 26 U/L (7-40); Anion Gap 9 (5-15); BUN/Creatinine Ratio 36.4 (10.0-20.0); Blood Urea Nitrogen 20 mg/dL (9-23); Carbon Dioxide 30 mmol/L (20-31); Chloride 103 mmol/L (98-107); Potassium 3.6 mmol/L (3.5-5.1); Sodium 142 mmol/L (136-145)
[2024-12-14 04:21] LABS: Albumin 2.8 g/dL (3.2-4.8); Alkaline Phosphatase 123 U/L (46-116); Calcium 8.6 mg/dL (8.7-10.4); Glucose 118 mg/dL (74-106); Total Protein 4.9 g/dL (5.7-8.2)
[2024-12-14 04:30] LABS: Bilirubin, Total 0.4 mg/dL (0.2-1.0)
--- NOTE | 2024-12-14 05:20 | DVH ---
CHEST RADIOGRAPH Indication: PATIENT INTUBATED Technique: Single frontal view of the chest was obtained COMPARISON: XY CHEST PORTABLE on DOS: 12/12/24, XY CHEST PORTABLE on DOS: 12/12/24, XY CHEST XRAY 1 VIE W on DOS: 12/11/24, XY CHEST XRAY 1 VIEW on DOS: 12/10/24 FINDINGS: Lines and Tubes: Endotracheal tube and enteric catheter in satisfactory position. Lungs: Unchanged multifocal airspace disease. Pleura: Unchanged small right pleural effusion. Cardiomediastinal contours: Unremarkable. Bones: Unremarkable. IMPRESSION: Lines and tubes in satisfactory position. No significant interval change. Limited examination secondary to patient positioning.
[2024-12-14 07:56] LABS: Base Excess 3.2 mmol/L (-2.0-3.0)
--- NOTE | 2024-12-14 10:03 | DVHPN2 ---
Subjective Sedated with fentanyl and Precedex Plan for CPAP today Changes from previous H/P or p: Changes Objective Vitals Vital Signs Date Time Temp Pulse Resp B/P (MAP) Pulse Ox O2 Delivery O2 Flow Rate FiO2 12/14/24 09:31 70 10 113/72 (86) 99 30 12/14/24 06:00 98.2 98.2 12/14/24 06:00 Mechanical Ventilator+ Intake/Output Intake and Output 12/14/24 07:00 Intake Total 914.405 ml Output Total 1100 ml Balance -185.595 ml Intake Oral 120 ml IV Total 424.405 ml Tube Feeding 370 ml Output Urine Total 800 ml Other 300 ml General Appearance: Alert, Other (Intubated) Lungs: Other (On mechanical ventilator. Transmitted breath sounds bilaterally.) Cardiovascular: Regular rate, Normal S1 Abdomen: Normal bowel sounds, Soft, No tenderness Extremities: No edema Medications Current Medications Medications Dose Ordered Sig/Cordelia Route Start Time Stop Time Status Last Admin Dose Admin Ondansetron HCl 4 mg Q4HP PRN IV 12/09/24 17:45 Acetaminophen 650 mg Q6HP PRN PO 12/09/24 17:45 Nitroglycerin 0.4 mg Q5MINP PRN SL 12/09/24 17:45 Morphine Sulfate 2 mg Q30M PRN IV 12/09/24 17:45 Vancomycin HCl 0 ml @ 0 mls/hr UD IV 12/09/24 17:45 Cefepime HCl 50 ml @ 12.5 mls/hr Q8H IV 12/09/24 00:30 12/14/24 08:21 12.5 MLS/HR Propofol 100 ml @ 1.86 mls/hr Q24H IV 12/10/24 00:30 12/13/24 01:10 7.44 MLS/HR Fentanyl Citrate 250 ml @ 2.5 mls/hr Q24H IV 12/10/24 00:30 12/13/24 21:56 7.5 MLS/HR Vancomycin HCl 100 ml @ 100 mls/hr Q12H IV 12/11/24 10:00 12/13/24 21:44 100 MLS/HR Enteral Nutritional Formula 1,000 ml 20ML/HR GT 12/10/24 23:15 12/13/24 18:26 1,000 ML Mupirocin 1 applic BID EACHNOSTRI 12/11/24 22:00 12/16/24 21:59 12/13/24 21:44 1 APPLIC Norepinephrine Bitartrate 250 ml @ 1.875 mls/ hr Q24H IV 12/12/24 19:00 12/14/24 00:37 1.875 MLS/HR Laboratory Results Laboratory Tests 12/14/24 03:30 Chemistry Test 12/14/24 03:30 Albumin 2.8 g/dL (3.2-4.8) L Calcium Level 8.6 mg/dL (8.7-10.4) L Total Protein 4.9 g/dL (5.7-8.2) L LFT Test 12/14/24 03:30 Alanine Aminotransferase (ALT) 26 U/L (7-40) Alkaline Phosphatase 123 U/L (46-116) H Aspartate Amino Transferase (AST) 27 U/L (13-40) Total Bilirubin 0.4 mg/dL (0.2-1.0) Blood Gas Results Test 12/14/24 07:25 Arterial Blood pH 7.419 (7.350-7.450) FiO2 % 30.0 Microbiology Microbiology Date/Time Source Procedure Growth Status 12/12/24 20:15 Trachea Gram Stain - Final Resulted 12/12/24 20:15 Trachea Respiratory Culture Pending Resulted 12/09/24 23:30 Sputum Gram Stain - Final Complete 12/09/24 23:30 Respiratory Culture - Final Methicillin Resistant S.aureus Presumptive Carolyn albicans Complete Assessment/Plan Assessment/Plan Acute hypoxic respiratory failure MRSA pneumonia Sepsis COPD Acute on chronic systolic heart failure EF 25% DNR MRSA positive Plan IV antibiotics Cefepime Vancomycin Vasopressors norepinephrine as needed Sedation as needed Discussed with the over the phone DNR Okay for vasopressors Pulmonary consult 12/11/2024: IV antibiotics cefepime and vancomycin Vasopressors norepinephrine as needed DNR Pulmonary consult Add Bactroban ointment to the nares 12/12/2024: Continue IV antibiotics Levophed drip as needed DNR Discussed with the over the phone Discussed with Dr. Macias over the phone, plan for bronchoscopy today The plan is to take the patient off sedation and Levophed and hopefully extubate him terminally soon to go home on hospice 12/13/2024: Off sedation CPAP trials Precedex Resume low-dose fentanyl DNR Status post bronchoscopy yesterday and mucus plugs removal and irrigation 12/14/2024: CPAP trial today He is on mild sedation now Alert and follows commands DNR Hospice consult once he is extubated Plan discussed with: Patient My Orders Orders - LUKE ADAMSON MD Procedure Category Date Status Time Abg W/ Co-Ox RT 12/14/24 Logged 04:00 Chest Portable XY 12/14/24 Resulted 04:00 Cpap/Sed Vacation Med ORDERS 12/14/24 Transmitted Weaning 09:57 Date of Service: Dec 14, 2024 Billing Provider: LUKE ADAMSON MD Common Visit Codes: [id number] INP/OBS CARE(HIGH) LUKE ADAMSON MD Dec 14, 2024 10:03
[2024-12-14 14:40] LABS: Base Excess 1.4 mmol/L (-2.0-3.0)
[2024-12-14] MEDS ORDERED: IPRATROPIUM BROM 0.5 MG/2.5ML INH SOL NEB PRN (16:00)
[2024-12-14] MEDS ORDERED: ALBUTEROL SULF 2.5 MG/0.5ML(0.5%) NEB SOLN NEB PRN (16:00)
[2024-12-14] MEDS ORDERED: LORazepam 2MG/ML-1ML VIAL ONE (16:10)
[2024-12-14] MEDS ORDERED: MORPHINE SULFATE INJ 2 MG/ml SYRG ONE (16:11)
[2024-12-14] MEDS: ALBUTEROL SULF 2.5 MG/0.5ML(0.5%) NEB SOLN ONE (16:29)
[2024-12-14] MEDS ORDERED: MORPHINE SULFATE INJ 2 MG/ml SYRG IV PRN (17:15)
[2024-12-14] MEDS: MORPHINE SULFATE INJ 2 MG/ml SYRG IV PRN (19:22)
[2024-12-14] MEDS: LORazepam 2MG/ML-1ML VIAL IV PRN (19:22)
--- NOTE | 2024-12-14 23:11 | DVHPN2 ---
Subjective DOS: 12/14/2024 Patient seen and examined at bedside. Intubated on mechanical ventilator. Overnight events reviewed. Changes from previous H/P or p: No Changes Objective Vitals Vital Signs Date Time Temp Pulse Resp B/P (MAP) Pulse Ox O2 Delivery O2 Flow Rate FiO2 12/14/24 19:22 121 36 90/61 12/14/24 16:04 72 100 12/14/24 16:00 Venturi Mask 12 12/14/24 12:00 97.9 97.9 Intake/Output Intake and Output 12/14/24 07:00 Intake Total 929.275 ml Output Total 1100 ml Balance -170.725 ml Intake Oral 120 ml IV Total 439.275 ml Tube Feeding 370 ml Output Urine Total 800 ml Other 300 ml General Appearance: Alert, Other (Intubated) Lungs: Other (On mechanical ventilator. Transmitted breath sounds bilaterally.) Cardiovascular: Regular rate, Normal S1 Abdomen: Normal bowel sounds, Soft, No tenderness Extremities: No edema Laboratory Results Laboratory Tests 12/14/24 03:30 12/14/24 10:20 Chemistry Test 12/14/24 03:30 Albumin 2.8 g/dL (3.2-4.8) L Calcium Level 8.6 mg/dL (8.7-10.4) L Total Protein 4.9 g/dL (5.7-8.2) L LFT Test 12/14/24 03:30 Alanine Aminotransferase (ALT) 26 U/L (7-40) Alkaline Phosphatase 123 U/L (46-116) H Aspartate Amino Transferase (AST) 27 U/L (13-40) Total Bilirubin 0.4 mg/dL (0.2-1.0) Blood Gas Results Test 12/14/24 07:25 12/14/24 13:47 Arterial Blood pH 7.419 (7.350-7.450) 7.430 (7.350-7.450) FiO2 % 30.0 30.0 Microbiology Microbiology Date/Time Source Procedure Growth Status 12/12/24 20:15 Trachea Gram Stain - Final Resulted 12/12/24 20:15 Trachea Respiratory Culture - Preliminary Resulted 12/09/24 23:30 Sputum Gram Stain - Final Complete 12/09/24 23:30 Respiratory Culture - 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 ABG reviewed, compensated. On CPAP with PS 8, PEEP of 5 CXR reviewed. Multifocal opacities. Small right pleural effusion. Continues on pressors - Levophed for hemodynamic support Titrate to keep MAP above 65 mmHg/SBP above 90 mmHg. Continue antibiotics Continue bronchodilators/Mucomyst Chest physiotherapy Pulmonary toileting Increased ET tube secretions. Maintain euvolemia Monitor renal function Labs reviewed. Patient with poor prognosis - high likelihood of demise. He was extubated uneventfully. Supportive care Pain control, anxiolytic PRN. Addendum: Patient . Time of pronounced 1646 hours. Plan: S/p extubation. Continue antibiotics. F/u cultures. Monitor renal function due to Acute kidney injury. Monitor electrolytes. Supplement as necessary. Monitor hemoglobin Transfuse if less than 7.0 g/dL. Nutritional support. Accu-Cheks, ISS. Wound care GI/DVT prophylaxis. SCDs, PPI Condition: Critical Prognosis: Poor given multiple comorbidities. Rest of plan per hospitalist and other consultants. A total of 35 minutes of critical care time was spent reviewing the patient record, examining the patient, making a diagnostic and therapeutic plan, discussing this plan with the medical personnel, following up on diagnostic studies and following the patient for clinical stability excluding any and all procedures. At least 50% of this time was spent in direct, [id number] contact. Thank you for allowing me to participate in this patient's care. Further recommendations will depend on patient's clinical course. Please do not hesitate to contact me if you have any questions or concerns. This medical document was created using an electronic medical record system with [employer] system. Although this document has been carefully reviewed, there may still be some phonetic and typographical errors. These areas are purely typographical due to imperfections of the software programs, and do not reflect any compromise in the patient's medical care. Plan discussed with: Other (JAMES Boo) Date of Service: Dec 14, 2024 Billing Provider: SINTIA GODINEZ MD Common Visit Codes: [id number] INP/OBS CARE(HIGH), [id number] CARE 30-74 MIN SINTIA GODINEZ MD Dec 14, 2024 23:11
== END 2024-12-14 16:46 | DRG 870 ==
LOC: OVERFLOW 12-09 14:31 → UNDOADMIN 12-09 14:31 → ICU WEST 12-09 22:30
PROVIDERS: ADMIT Internal Medicine Geriatric Medicine; ATTEND Internal Medicine Geriatric Medicine
PROC: 5A1955Z Respiratory Ventilation, Greater than 96 Consecutive Hours (ICD-10-PCS; principal; 2024-12-09)
PROC: 0BH18EZ Insertion of Endotracheal Airway into Trachea, Via Natural or Artificial Opening Endoscopic (ICD-10-PCS; 2024-12-09)
PROC: 0B9J8ZX Drainage of Left Lower Lung Lobe, Via Natural or Artificial Opening Endoscopic, Diagnostic (ICD-10-PCS; 2024-12-12)
PROC: 0B9G8ZZ Drainage of Left Upper Lung Lobe, Via Natural or Artificial Opening Endoscopic (ICD-10-PCS; 2024-12-12)
PROC: 5A09357 Assistance with Respiratory Ventilation, Less than 24 Consecutive Hours, Continuous Positive Airway Pressure (ICD-10-PCS; 2024-12-14)
DX: A41.02 Sepsis due to Methicillin resistant Staphylococcus aureus (principal); I50.23 Acute on chronic systolic (congestive) heart failure; J15.212 Pneumonia due to Methicillin resistant Staphylococcus aureus; J96.01 Acute respiratory failure with hypoxia; J44.1 Chronic obstructive pulmonary disease with (acute) exacerbation; J98.11 Atelectasis; J44.0 Chronic obstructive pulmonary disease with (acute) lower respiratory infection; N17.9 Acute kidney failure, unspecified; E87.20 Acidosis, unspecified; Z66 Do not resuscitate; I11.0 Hypertensive heart disease with heart failure; Z74.01 Bed confinement status; Z51.5 Encounter for palliative care
CPT/HCPCS: 36415; 36600; 71045; 80048; 80053; 80202; 82565; 82805; 83735; 85025; 87070; 87077; 87081; 87186; 87205; 94002; 94003; 94640; 94660; G0378; J2704; J3480